=== PATIENT | female | born 1975 ===

== ENCOUNTER 2019-06-27 06:06 | Inpatient (IN) ==
[2019-06-27] MEDS ORDERED: levoFLOXacin 500 MG/100 ML 500 MG/100 ML BAG IVPB ONE (06:23)
[2019-06-27] MEDS ORDERED: Ringers Solution, Lactated 1,000 ML IVC SCH (06:30)
[2019-06-27] MEDS ORDERED: Lidocaine -MPF 2% 2 ML VIAL ONE ×2 (06:58→07:16)
[2019-06-27] MEDS ORDERED: Heparin 1,000 UNITS/500 mL 500 ML ONE (07:09)
[2019-06-27] MEDS ORDERED: *HR* Propofol 200 MG/20 ML VIAL IVP ONE (07:14)
[2019-06-27] MEDS ORDERED: *HR* FentaNYL (PF) 100 MCG/2 ML VIAL ONE (07:14)
[2019-06-27] MEDS ORDERED: *HR* Midazolam HCl 2 MG/2 ML VIAL ONE (07:14)
[2019-06-27] MEDS ORDERED: Dexamethasone 4 MG/ML VIAL ONE (07:16)
[2019-06-27] MEDS ORDERED: *HR* Rocuronium Bromide 50 MG/5 ML VIAL ONE ×2 (07:16→09:21)
[2019-06-27] MEDS ORDERED: Ondansetron 4 MG/2 ML VIAL ONE (07:16)
[2019-06-27] MEDS ORDERED: *HR* Remifentanil 2 MG VIAL IVP ONE (07:21)
[2019-06-27] MEDS ORDERED: Lidocaine HCL 4 ML Topical Solution (Laryng-O-Jet Kit Sterile Pak) TP ONE (07:23)
[2019-06-27] MEDS ORDERED: Bupivacaine-MPF 0.25% 10 ML VIAL ONE (07:27)
[2019-06-27] MEDS ORDERED: Bupivacaine/EPI 1:200k 0.5%PF 10 ML VIAL ONE (07:30)
[2019-06-27] MEDS ORDERED: Scopolamine Patch 1.5 MG PATCH.TD72 TD ONE (07:42)
[2019-06-27] MEDS ORDERED: *HR* OxyCODONE Immed Rel 5 MG TABLET PO PRN (07:43)
[2019-06-27] MEDS ORDERED: *HR* HYDROmorphone (PF) 1 MG/ML SYRINGE IVP PRN (07:43)
[2019-06-27] MEDS ORDERED: Ondansetron 4 MG/2 ML VIAL IVP ONE (07:43)
[2019-06-27] MEDS ORDERED: *HR* PHENYLEPHRINE 1,000 MCG/10 ML SYRINGE IVP ONE (08:09)
[2019-06-27] MEDS ORDERED: EPHEDrine 50 MG/ML VIAL ONE (09:27)
[2019-06-27] MEDS ORDERED: *HR* HYDROMORPHONE 2 MG/ML VIAL ONE (11:04)
[2019-06-27] MEDS ORDERED: *HR* Belladonna Alkaloids/Opium 30 MG RECTAL SUPPOSITORY RC PRN (11:37)
[2019-06-27] MEDS ORDERED: Naloxone 0.4 MG/ML INJ IVP PRN (11:37)
[2019-06-27] MEDS ORDERED: *HR* FentaNYL (PF) 100 MCG/2 ML VIAL IVP PRN ×2 (11:37→13:21)
[2019-06-27] MEDS: *HR* Promethazine 25 MG/ML VIAL IVP PRN ×2 (11:49→12:01)
[2019-06-27] MEDS: Ondansetron 4 MG/2 ML VIAL IVP PRN ×2 (13:14→23:14)
[2019-06-27] MEDS: 0.9 % Sodium Chloride 1,000 ML IVC SCH (13:14)
[2019-06-27] MEDS: Acetaminophen IV 1,000 MG/100 ML INFUS..BTL IVPB SCH ×3 (18:03→23:10)
[2019-06-27] MEDS: Ziprasidone 20 MG CAPSULE PO SCH (18:05)
[2019-06-27] MEDS: Methylphenidate HCl 10 MG TABLET PO SCH (18:05)
[2019-06-27] MEDS: Mirtazapine 15 MG TABLET PO SCH (20:48)
[2019-06-27] MEDS: lamoTRIgine 100 MG TABLET PO SCH (20:49)
[2019-06-27] MEDS: *HR* LORazepam 1 MG TABLET PO SCH (20:49)
[2019-06-27] MEDS: Topiramate 100 MG TABLET PO SCH (20:49)
[2019-06-27] MEDS: Famotidine 20 MG TABLET PO SCH (20:49)
[2019-06-27] MEDS ORDERED: Methylphenidate HCl 10 MG TABLET PO SCH (21:00)
[2019-06-27] MEDS ORDERED: Nicotine 21 MG PATCH.TD24 TD SCH (22:43)
[2019-06-28] MEDS: 0.9 % Sodium Chloride 1,000 ML IVC SCH (00:36)
[2019-06-28] MEDS: Acetaminophen IV 1,000 MG/100 ML INFUS..BTL IVPB SCH (05:46)
[2019-06-28 05:55] LABS: Basophils % 0.3 %; Hematocrit 38.9 % (35.3-44.9); Hemoglobin 12.8 g/dL (11.5-15.4); Immature Granulocytes % 0.6 % (0-4); Lymphocytes # 2.7 K/mcL (0.6-4.6); Lymphocytes % 17.3 %; Mean Corpuscular HGB Conc 32.9 g/dL (31.6-35.5); Mean Corpuscular Hemoglobin 32.5 pg (28.0-33.3); Mean Corpuscular Volume 98.7 fL (83.0-100.0); Mean Platelet Volume 10.5 fL (9.4-12.4); Monocytes # 1.4 K/mcL (0.0-1.3); Monocytes % 9.1 %; Neutrophils # 11.3 K/mcL (1.6-8.9); Platelet Count 280 K/mcL (140-400); Red Blood Count 3.94 M/mcL (3.82-4.97); Red Cell Distribution Width 12.5 % (11.5-14.5); Segmented Neutrophils % 72.7 %; White Blood Count 15.5 K/mcL (4.3-11.1)
[2019-06-28 06:16] LABS: BUN/Creatinine Ratio 12 (6-26); Blood Urea Nitrogen 11 mg/dL (6-20); Calcium 8.6 mg/dL (8.6-10.3); Carbon Dioxide 24 mEq/L (23-29); Chloride 104 mEq/L (98-107); Glucose 115 mg/dL (70-105); Osmolality,Calculated 286 (280-300); Potassium 3.7 mEq/L (3.5-5.1); Sodium 138 mEq/L (136-145); eGFR For African Americans > 60 (> 60); eGFR For Non-African Americans > 60 (> 60)
[2019-06-28] MEDS ORDERED: DESVENLAFAXINE SUCCINATE PO SCH (09:00)
[2019-06-28] MEDS ORDERED: levoFLOXacin 500 MG TABLET PO SCH (09:00)
[2019-06-28] MEDS: Venlafaxine XR (24 HR) 37.5 MG CAP.ER.24H PO SCH (09:04)
[2019-06-28] MEDS: Methylphenidate HCl 10 MG TABLET PO SCH ×2 (09:04→17:36)
[2019-06-28] MEDS: Ziprasidone 20 MG CAPSULE PO SCH ×2 (09:05→17:36)
[2019-06-28] MEDS: *HR* LORazepam 1 MG TABLET PO SCH ×2 (09:05→20:10)
[2019-06-28] MEDS: Topiramate 100 MG TABLET PO SCH ×2 (09:05→20:09)
[2019-06-28] MEDS: *HR* HYDROcodone/Acet 10/325 mg TABLET PO PRN ×2 (09:05→20:07)
[2019-06-28] MEDS: lamoTRIgine 100 MG TABLET PO SCH ×2 (09:06→20:10)
[2019-06-28] MEDS: Nicotine 21 MG PATCH.TD24 TD SCH (09:06)
[2019-06-28] MEDS: Spironolactone 25 MG TABLET PO SCH (09:06)
[2019-06-28] MEDS ORDERED: Acetaminophen IV 1,000 MG/100 ML INFUS..BTL IVPB ONE (14:57)
[2019-06-28] MEDS: Mirtazapine 15 MG TABLET PO SCH (20:12)
[2019-06-28] MEDS: Famotidine 20 MG TABLET PO SCH (20:13)
[2019-06-28] MEDS: Ondansetron 4 MG/2 ML VIAL IVP PRN (22:43)
[2019-06-28] MEDS: Acetaminophen 325 MG TABLET PO PRN (23:26)
[2019-06-29] MEDS: *HR* HYDROcodone/Acet 10/325 mg TABLET PO PRN ×3 (05:19→19:57)
[2019-06-29 08:13] LABS: Basophils % 0.3 %; Hematocrit 39.4 % (35.3-44.9); Hemoglobin 13.6 g/dL (11.5-15.4); Immature Granulocytes % 0.6 % (0-4); Lymphocytes % 23.9 %; Mean Corpuscular HGB Conc 34.5 g/dL (31.6-35.5); Mean Corpuscular Hemoglobin 32.6 pg (28.0-33.3); Mean Corpuscular Volume 94.5 fL (83.0-100.0); Mean Platelet Volume 10.4 fL (9.4-12.4); Monocytes # 1.3 K/mcL (0.0-1.3); Monocytes % 10.3 %; Neutrophils # 8.2 K/mcL (1.6-8.9); Platelet Count 268 K/mcL (140-400); Red Blood Count 4.17 M/mcL (3.82-4.97); Red Cell Distribution Width 12.8 % (11.5-14.5); Segmented Neutrophils % 64.9 %; White Blood Count 12.6 K/mcL (4.3-11.1)
[2019-06-29] MEDS: Methylphenidate HCl 10 MG TABLET PO SCH ×2 (09:08→17:13)
[2019-06-29] MEDS: Venlafaxine XR (24 HR) 37.5 MG CAP.ER.24H PO SCH (09:08)
[2019-06-29] MEDS: *HR* LORazepam 1 MG TABLET PO SCH ×2 (09:08→19:57)
[2019-06-29] MEDS: lamoTRIgine 100 MG TABLET PO SCH ×2 (09:08→19:57)
[2019-06-29] MEDS: Topiramate 100 MG TABLET PO SCH ×2 (09:09→19:57)
[2019-06-29] MEDS: Spironolactone 25 MG TABLET PO SCH (09:09)
[2019-06-29] MEDS: Ziprasidone 20 MG CAPSULE PO SCH ×2 (09:09→17:13)
[2019-06-29] MEDS: Nicotine 21 MG PATCH.TD24 TD SCH (09:09)
[2019-06-29] MEDS: levoFLOXacin 500 MG/100 ML 500 MG/100 ML BAG IVPB SCH (09:09)
[2019-06-29] MEDS: Ondansetron 4 MG/2 ML VIAL IVP PRN (13:32)
[2019-06-29] MEDS: Acetaminophen 325 MG TABLET PO PRN ×2 (17:13→23:48)
[2019-06-29] MEDS: Famotidine 20 MG TABLET PO SCH (19:57)
[2019-06-29] MEDS: Mirtazapine 15 MG TABLET PO SCH (19:57)
[2019-06-30] MEDS: Ondansetron 4 MG/2 ML VIAL IVP PRN ×2 (01:58→10:03)
[2019-06-30 07:31] VITALS: BP 127/81
[2019-06-30] MEDS ORDERED: FLU Vac QV 19-20 (6Month+)/PF 0.5 ML SYRINGE IM ONE (09:10)
[2019-06-30] MEDS: lamoTRIgine 100 MG TABLET PO SCH (10:12)
[2019-06-30] MEDS: Spironolactone 25 MG TABLET PO SCH (10:12)
[2019-06-30] MEDS: *HR* LORazepam 1 MG TABLET PO SCH (10:12)
[2019-06-30] MEDS: Methylphenidate HCl 10 MG TABLET PO SCH (10:12)
[2019-06-30] MEDS: levoFLOXacin 500 MG/100 ML 500 MG/100 ML BAG IVPB SCH (10:13)
[2019-06-30] MEDS: Nicotine 21 MG PATCH.TD24 TD SCH (10:13)
[2019-06-30] MEDS: Venlafaxine XR (24 HR) 37.5 MG CAP.ER.24H PO SCH (10:13)
[2019-06-30] MEDS: Ziprasidone 20 MG CAPSULE PO SCH (10:13)
[2019-06-30] MEDS: Topiramate 100 MG TABLET PO SCH (10:13)
== END 2019-06-30 10:44 | disposition home or self-care (01) | DRG 443 ==
LOC: SAMDAY 06:06 → 2ANU 12:56
PROVIDERS: ADMIT Urology; ATTEND Urology